=== PATIENT | male | born 1955 | race Two or more races ===

== ENCOUNTER 2023-08-01 09:12 | Day surgery (SDC) | payer OTHER ==
[2023-08-01] VITALS (10 sets, daily range): BP systolic 98–161; BP diastolic 39–64; PULSE 41–43; RESP 11–15; TEMP 97.7; O2SAT 92–98
[~2023-08-01] VITALS: Ht 177.8 cm; Wt 104.3 kg
[~2023-08-01 09:12] MED LIST: ASPI-498 PO; CLOP75TA28 PO; GABA-339 PO; HEPARIN IN NS 1000Units/500mL 1,500 ML ONE; HYDR25TA4 PO; INSU100I47 SC; IODIXANOL 320MG/ML 100ML BTL IV ONE; ISOS60TA24 PO; LEVO75TA6 PO; LIDOCAINE 2%HCL (LOCAL ANESTH.) INJ 20ML MDV ONE; LOSA25TA15 PO; METF-371 PO; METO100T18 PO; NITR0.4S29 SL; PAR20T PO; ROSU40TA81 PO
[2023-08-01] MEDS ORDERED: GELATIN 1 SPONGE SIZE 50 TOP ONE (09:38)
[2023-08-01] MEDS ORDERED: LIDOCAINE 1% HCL (LOCAL ANESTH.) INJ 20ML MDV ONE (09:38)
[2023-08-01] MEDS ORDERED: VERAPAMIL 2.5MG/ML INJ 2ML VIAL IV ONE (10:07)
[2023-08-01] MEDS ORDERED: ANGIOMAX 250 MG VIAL IV ONE (10:07)
[2023-08-01] MEDS ORDERED: fentaNYL CITRATE 100 MCG/2 ML VL ONE (10:08)
[2023-08-01] MEDS ORDERED: MIDAZOLAM HCL 2MG/2ML 2ml VIAL (1mg/ml) ONE (10:08)
[2023-08-01] MEDS ORDERED: SODIUM CHL 0.9% 50 ML ONE (10:08)
[2023-08-01] MEDS ORDERED: HEPARIN SODIUM (PORCINE) 5000 UNITS/ML 1ML VIAL ONE (10:08)
[2023-08-01] MEDS ORDERED: IODIXANOL 320MG/ML 100ML BTL IV ONE ×2 (10:12→10:36)
[2023-08-01] MEDS ORDERED: LIDOCAINE 2%HCL (LOCAL ANESTH.) INJ 20ML MDV ONE (10:39)
== END 2023-08-01 14:00 | disposition home or self-care (01) ==
LOC: CATH 09:12
PROVIDERS: ATTEND Internal Medicine
DX: R94.39 Abnormal result of other cardiovascular function study (principal); I25.118 Atherosclerotic heart disease of native coronary artery with other forms of angina pectoris; R07.9 Chest pain, unspecified; I10 Essential (primary) hypertension; Z79.899 Other long term (current) drug therapy; Z98.890 Other specified postprocedural states
CPT/HCPCS: 93005; 93458; C1725; C1769; C1887; C1894; J0583; J1644; J2001; J2250; J3010; J7030; Q9967; 99152

== ENCOUNTER 2023-08-08 09:27 | Day surgery (SDC) | payer OTHER ==
[2023-08-08] VITALS (7 sets, daily range): BP systolic 100–144; BP diastolic 46–82; PULSE 42–45; RESP 12–18; O2SAT 90–96
[~2023-08-08] VITALS: Ht 177.8 cm; Wt 47.2 kg
[~2023-08-08 09:27] MED LIST changes: -HEPARIN IN NS 1000Units/500mL 1,500 ML ONE; -IODIXANOL 320MG/ML 100ML BTL IV ONE; -LIDOCAINE 2%HCL (LOCAL ANESTH.) INJ 20ML MDV ONE
[2023-08-08] MEDS ORDERED: VERAPAMIL 2.5MG/ML INJ 2ML VIAL IV ONE (12:17)
[2023-08-08] MEDS ORDERED: HEPARIN SODIUM (PORCINE) 5000 UNITS/ML 1ML VIAL ONE (12:17)
[2023-08-08] MEDS ORDERED: ANGIOMAX 250 MG VIAL IV ONE (12:17)
[2023-08-08] MEDS ORDERED: fentaNYL CITRATE 100 MCG/2 ML VL ONE (12:18)
[2023-08-08] MEDS ORDERED: SODIUM CHL 0.9% 50 ML ONE (12:18)
[2023-08-08] MEDS ORDERED: MIDAZOLAM HCL 2MG/2ML 2ml VIAL (1mg/ml) ONE (12:18)
[2023-08-08] MEDS ORDERED: LIDOCAINE 2%HCL (LOCAL ANESTH.) INJ 20ML MDV ONE (12:18)
[2023-08-08] MEDS ORDERED: IODIXANOL 320MG/ML 100ML BTL IV ONE ×2 (12:18→12:19)
[2023-08-08] MEDS ORDERED: ASPirin 81 mg TAB ONE (13:03)
[2023-08-08] MEDS ORDERED: CLOPIDOGREL 300 MG TAB ONE (13:03)
== END 2023-08-08 17:15 | disposition home or self-care (01) ==
LOC: CATH 09:27
PROVIDERS: ATTEND Internal Medicine
DX: I25.118 Atherosclerotic heart disease of native coronary artery with other forms of angina pectoris (principal); R94.39 Abnormal result of other cardiovascular function study; I10 Essential (primary) hypertension; E78.5 Hyperlipidemia, unspecified; Z79.899 Other long term (current) drug therapy; Z98.890 Other specified postprocedural states
CPT/HCPCS: 93458; C1725; C1769; C1874; C1887; C1894; C9600; J0583; J1644; J2250; J3010; Q9967; 99152

== ENCOUNTER 2023-10-24 08:41 | Day surgery (SDC) | payer OTHER ==
[~2023-10-24] VITALS: Ht 177.8 cm; Wt 104.3 kg
[2023-10-24] MEDS ORDERED: IODIXANOL 320MG/ML 100ML BTL IV ONE ×2 (09:59→11:45)
[2023-10-24] MEDS ORDERED: LIDOCAINE 2%HCL (LOCAL ANESTH.) INJ 20ML MDV ONE (09:59)
[2023-10-24] MEDS ORDERED: HEPARIN IN NS 1000Units/500mL 1,500 ML ONE (09:59)
[2023-10-24] MEDS ORDERED: ANGIOMAX 250 MG VIAL IV ONE (10:58)
[2023-10-24] MEDS ORDERED: fentaNYL CITRATE 100 MCG/2 ML VL ONE (10:59)
[2023-10-24] MEDS ORDERED: HEPARIN SODIUM (PORCINE) 5000 UNITS/ML 1ML VIAL ONE (10:59)
[2023-10-24] MEDS ORDERED: MIDAZOLAM HCL 2MG/2ML 2ml VIAL (1mg/ml) ONE (10:59)
[2023-10-24] MEDS ORDERED: SODIUM CHL 0.9% 0 ML ONE (10:59)
[2023-10-24] MEDS ORDERED: VERAPAMIL 2.5MG/ML INJ 2ML VIAL IV ONE (11:29)
[2023-10-24] MEDS ORDERED: HEPARIN 1,000 UNITS/ml 1ML VIAL ONE (11:48)
[2023-10-24] MEDS ORDERED: hydrALAZINE HCL 20 MG/ML VL ONE (12:27)
== END 2023-10-24 14:47 | disposition home or self-care (01) ==
LOC: CATH 08:41
PROVIDERS: ATTEND Internal Medicine
DX: I70.202 Unspecified atherosclerosis of native arteries of extremities, left leg (principal)
CPT/HCPCS: 75716; 93005; C1725; C1769; C1887; C1894; C9764; J0360; J1644; J2250; J3010; J7030; Q9967; 76937; 99152; 99153

== ENCOUNTER 2023-12-12 06:58 | Day surgery (SDC) | payer OTHER ==
[~2023-12-12] VITALS: Ht 177.8 cm; Wt 104.8 kg
[2023-12-12] VITALS (9 sets, daily range): BP systolic 134–158; BP diastolic 61–82; PULSE 43–48; RESP 12–21; TEMP 97.9; O2SAT 90–99
[~2023-12-12 06:58] MED LIST changes: +ISOS1TAB29 PO; -ISOS60TA24 PO; +LOSA-533 PO; -LOSA25TA15 PO
[2023-12-12] MEDS ORDERED: IODIXANOL 320MG/ML 100ML BTL IV ONE ×2 (07:50→09:42)
[2023-12-12] MEDS ORDERED: HEPARIN IN NS 1000Units/500mL 1,500 ML ONE (07:50)
[2023-12-12] MEDS ORDERED: LIDOCAINE 2%HCL (LOCAL ANESTH.) INJ 20ML MDV ONE (07:50)
[2023-12-12] MEDS ORDERED: IOHEXOL 350 MG/ML 100ML IJ ONE (07:50)
[2023-12-12] MEDS ORDERED: ANGIOMAX 250 MG VIAL IV ONE (08:28)
[2023-12-12] MEDS ORDERED: fentaNYL CITRATE 100 MCG/2 ML VL ONE (08:29)
[2023-12-12] MEDS ORDERED: MIDAZOLAM HCL 2MG/2ML 2ml VIAL (1mg/ml) ONE (08:29)
[2023-12-12] MEDS ORDERED: SODIUM CHL 0.9% 50 ML ONE (08:29)
[2023-12-12] MEDS ORDERED: HEPARIN SODIUM (PORCINE) 5000 UNITS/ML 1ML VIAL ONE ×2 (09:15→09:16)
== END 2023-12-12 12:40 | disposition home or self-care (01) ==
LOC: CATH 06:58
PROVIDERS: ATTEND Internal Medicine
DX: I73.9 Peripheral vascular disease, unspecified (principal); E11.40 Type 2 diabetes mellitus with diabetic neuropathy, unspecified; I10 Essential (primary) hypertension; I25.10 Atherosclerotic heart disease of native coronary artery without angina pectoris; E03.9 Hypothyroidism, unspecified; E78.00 Pure hypercholesterolemia, unspecified; Z79.01 Long term (current) use of anticoagulants; Z79.82 Long term (current) use of aspirin; Z79.890 Hormone replacement therapy; Z79.84 Long term (current) use of oral hypoglycemic drugs; Z79.4 Long term (current) use of insulin; Z82.49 Family history of ischemic heart disease and other diseases of the circulatory system; Z87.891 Personal history of nicotine dependence; Z79.899 Other long term (current) drug therapy; Z98.890 Other specified postprocedural states
CPT/HCPCS: 36247; 75625; 75710; 76937; 93005; C1725; C1760; C1769; C1876; C1887; C1894; C9765; J0583; J1644; J2250; J3010; Q9967; 99152